=== PATIENT | male | born 1955 | race Caucasian/White ===

== ENCOUNTER → 2024-02-15 | Emergency (ER) | payer MEDICARE, OTHER ==
[~2024-02-15] VITALS: Ht 167.6 cm; Wt 89.8 kg
[2024-02-15 22:33] VITALS: BP 154/79
== END ==
LOC: ER 22:19
DX: T39.311A Poisoning by propionic acid derivatives, accidental (unintentional), initial encounter (principal); T39.1X1A Poisoning by 4-Aminophenol derivatives, accidental (unintentional), initial encounter